=== PATIENT | male | born 1980 | race African-American/Black ===

== ENCOUNTER 2018-06-27 20:41 | Emergency (ER) | payer BC, OTHER ==
[~2018-06-27] VITALS: Ht 170.2 cm; Wt 72.6 kg
--- OUTSIDE RECORDS SUMMARY | 2018-06-27 20:46 | XMS REPORT | CCD ---
Author Author JASMIN GUSTAFSON Unknown Address [address] [facility] [address] [place] [id number] Care Team Providers Care Social Media Executive Name Role Phone RAVENNA ER, MAGDY DO Attphys RAVENNA ER, MAGDY DO Prisurg Vital Signs Unknown. Allergies Allergy Code Allergy Type Reaction Status No Known Drug Allergies 0 No known drug allergies Active Procedures Unknown. History of Immunizations Unknown. Problems Unknown. Results RAPID DRUG SCREEN Test Name Code Test Result Test Units Test Date/ Time Cannabinoids (THC) NEGATIVE N/A 04/12/2013 23:45 Phencyclidine (PCP) NEGATIVE N/A 04/12/2013 23: 45 Cocaine NEGATIVE N/A 04/12/2013 23:45 Methamphetamine NEGATIVE N/A 04/12/2013 23:45 Opiates NEGATIVE N/A 04/12/2013 23:45 Amphetamine NEGATIVE N/A 04/12/2013 23:45 Benzodiazepines NEGATIVE N/A 04/12/2013 23:45 Tricyclic Antidepres NEGATIVE N/A 04/12/2013 23: 45 Methadone NEGATIVE N/A 04/12/2013 23:45 Barbiturates NEGATIVE N/A 04/12/2013 23:45 Oxycodone NEGATIVE N/A 04/12/2013 23:45 Propoxyphene (PPX) NEGATIVE N/A 04/12/2013 23:45 ALCOHOL Test Name Code Test Result Test Units Test Date/ Time ETHANOL 5640-8 60.0000 MG/DL 04/12/2013 23:45 CBC W/ AUTO DIFF (RFLX MAN DIFF IF IND) Test Name Code Test Result Test Units Test Date/ Time WBC 60660-1 14.6000 TH/CMM 04/12/2013 23:45 RBC 789-8 5.4100 ML/CMM 04/12/2013 23:45 HGB 718-7 17.7000 G/DL 04/12/2013 23:45 HCT 4544-3 49.8000 % 04/12/2013 23:45 MCV 92.0000 FL 04/12/2013 23:45 MCH 32.7000 PG 04/12/2013 23:45 MCHC 35.5000 G/DL 04/12/2013 23:45 RDW SD 49.0000 FL 04/12/2013 23:45 MPV 9.4000 FL 04/12/2013 23:45 PLT 777-3 265.0000 TH/CMM 04/12/2013 23:45 %NEUT 76.0000 % 04/12/2013 23:45 %LYMP 14.2000 % 04/12/2013 23:45 %MIXED 9.8000 % 04/12/2013 23:45 #NEUT 11.1000 TH/CMM 04/12/2013 23:45 #LYMP 2.1000 TH/CMM 04/12/2013 23:45 #MIXED 1.4000 TH/CMM 04/12/2013 23:45 SEGS 78.0000 % 04/12/2013 23:45 BANDS 1.0000 % 04/12/2013 23:45 LYMPHS 13.0000 % 04/12/2013 23:45 MONOS 6.0000 % 04/12/2013 23:45 EOS 2.0000 % 04/12/2013 23:45 MANUAL DIFF SEE BELOW N/A 04/12/2013 23:45 TROPONIN-I ADV Test Name Code Test Result Test Units Test Date[place] [address]-2 0.0400 ng/mL 04/12/2013 23: 45 COMPREHENSIVE METABOLIC PANEL Test Name Code Test Result Test Units Test Date/ Time GLUCOSE 2345-7 79.0000 MG/DL 04/12/2013 23:45 SODIUM 2951-2 139.0000 MEQ/L 04/12/2013 23:45 POTASSIUM 2823-3 3.7000 MEQ/L 04/12/2013 23:45 CHLORIDE 2075-0 105.0000 MEQ/L 04/12/2013 23:45 CO2 2028-9 16.0000 MEQ/L 04/12/2013 23:45 BUN 3094-0 16.0000 MG/DL 04/12/2013 23:45 CREATININE 2160-0 1.2000 MG/DL 04/12/2013 23:45 SGOT/AST 1920-8 30.0000 IU/L 04/12/2013 23:45 SGPT/ALT 1742-6 26.0000 IU/L 04/12/2013 23:45 ALK PHOS 6768-6 69.0000 IU/L 04/12/2013 23:45 TOTAL PROTEIN 2885-2 8.9000 G/DL 04/12/2013 23:45 ALBUMIN 1751-7 4.8000 G/DL 04/12/2013 23:45 TOTAL BILI 1975-2 0.3000 MG/DL 04/12/2013 23:45 CALCIUM 54723-8 9.9000 MG/DL 04/12/2013 23:45 AGE 32.0000 yrs 04/12/2013 23:45 GFR NonAA 71.0000 04/12/2013 23:45 GFR AA 86.0000 04/12/2013 23:45 eGFR 60.0000 mL/min/1.7 04/12/2013 23:45 eGFR AA* 60.0000 mL/min/1.7 04/12/2013 23:45 Medications Unknown. Medications Administered Unknown. Encounters Encounter Diagnosis Diagnosis Code Start Date PALPITATIONS 7851 04/12/2013 Social History Smoking Status Code Start Date End Date Current every day smoker [id number] Patient Decision Aids Unknown. Instructions You were admitted to [facility] on 04/12/2013 with a principle diagnosis of PALPITATIONS. You were discharged from [facility] on 04/13/2013. Should you have any questions prior to discharge, please contact a member of your healthcare team. If you have left the hospital and have any questions, please contact your primary care physician. Chief Complaint and Reason For Visit Chief Complaint Date of Onset FAST HEART RATE HEADACHE Function Status Unknown. Referral/Transition of Care Unknown.
--- OUTSIDE RECORDS SUMMARY | 2018-06-27 20:46 | XMS REPORT | Continuity of Care Document ---
Author Organization Unknown Address Unknown Allergies There is no data. Medications There is no data. Problems There is no data. Procedures There is no data. Results There is no data. Encounters ACCT No. Visit Date/Time Discharge Status Pt. Type Provider Facility Loc./Unit Complaint [id number] 07/28/2013 09:41:12 07/28/2013 23:59:59 [facility] Outpatient Jagjit Lopez [id number] 06/30/2013 15:41:01 06/30/2013 23:59:59 [facility] Outpatient Jagjit Lopez [id number] 05/23/2013 09:42:59 05/23/2013 23:59:59 [facility] Outpatient Jagjit Lopez [id number] 05/15/2013 12:01:12 05/15/2013 23:59:59 [facility] Outpatient Kelvin Epperson
--- OUTSIDE RECORDS SUMMARY | 2018-06-27 20:46 | XMS REPORT ---
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 Name Role Phone KEAGAN CARDONA Unavailable PROBLEMS Unknown Problems ALLERGIES No Information ENCOUNTERS Encounter Location Date Diagnosis [facility] [address] [facility] [id number] [place] [phone] May, [facility] [id number] [place] [phone] Dec, Atypical chest pain R07.89 and Dermoid cyst of face D23.30 [facility] [id number] [place] [phone] Nov, Dental examination Z01.20 IMMUNIZATIONS No Known Immunizations SOCIAL HISTORY Never Assessed REASON FOR VISIT Eye Exam PLAN OF CARE VITAL SIGNS MEDICATIONS Unknown Medications RESULTS No Results PROCEDURES No Known procedures INSTRUCTIONS MEDICATIONS ADMINISTERED No Known Medications
--- OUTSIDE RECORDS SUMMARY | 2018-06-27 20:46 | XMS REPORT ---
Author Author KENJI ELLIS Organization [facility] Address [address] [place] [address] Care Team Providers Care Medical Claims Specialist Name Role Phone KENJI ELLIS Unavailable PROBLEMS Unknown Problems ALLERGIES No Known Allergies ENCOUNTERS Encounter Location Date Diagnosis [facility] [address] [place] [phone] May, 2017 [facility] [id number] [place] [phone] Dec, Atypical chest pain R07.89 and Dermoid cyst of face D23.30 [facility] [address] [place] [phone] Nov, Dental examination Z01.20 IMMUNIZATIONS No Known Immunizations SOCIAL HISTORY Never Assessed REASON FOR VISIT bump on arm: left posterior forearm, goes up and down in size, states causes some pain, c/o intermittent chest pain without activity over the past month, denies SOB with incidents idania akhtar PLAN OF CARE Activity Details Follow Up prn Reason: VITAL SIGNS Weight 141.2 lbs 2017-01-11 Temperature 98.6 degrees Fahrenheit 2017-01-11 Heart Rate 72 bpm 2017-01-11 Respiratory Rate 20 2017-01-11 Blood pressure systolic 124 mmHg 2017-01-11 Blood pressure diastolic 72 mmHg 2017-01-11 MEDICATIONS Unknown Medications RESULTS No Results PROCEDURES No Known procedures INSTRUCTIONS MEDICATIONS ADMINISTERED No Known Medications
[2018-06-27] MEDS ORDERED: FAMOTIDINE 20MG/2ML IV (PEPCID) IVP ONE (21:00)
[2018-06-27] MEDS ORDERED: methylPREDNISolone 125 MG (Solu-MEDROL) VIAL IVP ONE (21:00)
[2018-06-27] MEDS ORDERED: diphenhydrAMINE 50 MG/ML INJ (BENADRYL) IVP ONE (21:00)
--- NOTE | 2018-06-27 21:03 | ED EENT ---
History of Present Illness General Chief Complaint: Allergic Reaction Stated Complaint: THROAT PAIN;POSS ALLERGIC REACTION Source: patient Exam Limitations: no limitations History of Present Illness Date Seen by Provider: June 27, 2018 Time Seen by Provider: 20:58 Initial Comments To ER with reports of throat pain and possible allergic reaction. This began about 15 minutes after eating a bowl of microwavable chicken fried rice. This was about 30 minutes ago. 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 Initially he felt as though something was stuck in his throat and tried to clear his throat but was unable to resolve this sensation. He then began drinking a lot of [place] which also failed to resolve this sensation. He now has some difficulty swallowing and speaking due to this sensation in his throat. He states his tongue does not feel any larger than normal, it seems to be lower than that. No history of allergic reactions. His only medication is zigz-bnr-koyqneg Prilosec which he started last week for acid reflux. Timing/Duration: this evening Severity: moderate Location: throat Associated Symptoms: No cough, No facial pain/swelling; sore throat Allergies and Home Medications Allergies Coded Allergies: No Known Drug Allergies (Unverified , 06/27/18) Patient Home Medication List Home Medication List Reviewed: Yes Review of Systems Review of Systems Constitutional: see HPI Eyes: No Symptoms Reported Ears: No Symptoms Reported Nose: no symptoms reported Mouth: no symptoms reported Throat: see HPI, swelling Respiratory: no symptoms reported Cardiovascular: no symptoms reported Musculoskeletal: no symptoms reported Skin: no symptoms reported Past Geyxnun-Gsezbf-Itchdx Hx Patient Social History Recent Foreign Travel: No Contact w/Someone Who Travel: No Physical Exam Vital Signs Vital Signs - First Documented 06/27/18 20:45 Temp 98.0 Pulse 85 Resp 18 B/P (MAP) 165/95 (118) Pulse Ox 99 O2 Delivery Room Air Height, Weight, BMI Height: '" Weight: lbs. oz. kg; BMI Method: General Appearance: WD/WN, no apparent distress Eyes: bilateral eye normal inspection, bilateral eye PERRL, bilateral eye EOMI Ears: bilateral ear auricle normal, bilateral ear canal normal, bilateral ear TM normal Mouth/Throat: normal mouth inspection, pharynx normal, voice changes (he does have a hot potato voice. He is not drooling, swallows his own secretions, no fevers and no pain, just difficulty with swallowing. There is no stridor. There is no oral swelling, the uvula is midline and not swollen, tongue is not swollen.), other Respiratory: no respiratory distress, no accessory muscle use Neurologic/Psychiatric: alert, normal mood/affect, oriented x 3 Skin: normal color, warm/dry Progress/Results/Core Measures Results/Orders My Orders Orders - DAPHNEY LUGO APRN Ed Iv/Invasive Line Start (06/27/18 20:53) Diphenhydramine Injection (Benadryl Inje (06/27/18 21:00) Famotidine Injection (Pepcid Injection) (06/27/18 21:00) Methylprednisolone Sod Succ (Solu-Medrol (06/27/18 21:00) Medications Given in ED Current Medications Medications Dose Ordered Sig/Denys Route Start Time Stop Time Status Last Admin Dose Admin Diphenhydramine HCl 25 mg ONCE ONCE IVP 06/27/18 21:00 06/27/18 21:01 DC 06/27/18 20:58 25 MG Famotidine 20 mg ONCE ONCE IVP 06/27/18 21:00 06/27/18 21:01 DC 06/27/18 20:58 20 MG Methylprednisolone Sodium Succinate 125 mg ONCE ONCE IVP 06/27/18 21:00 06/27/18 21:01 DC 06/27/18 20:58 125 MG Vital Signs/I&O 06/27/18 20:45 Temp 98.0 Pulse 85 Resp 18 B/P (MAP) 165/95 (118) Pulse Ox 99 O2 Delivery Room Air Departure Communication (Admissions) 142-symptoms are improving subjectively, and still unable to visualize anything but he states that it easier to swallow at this point. Could be an allergic angioedema from something that he ate, could be a hereditary angioedema however that is unlikely since he responded to antihistamines Impression Primary Impression: Allergic angioedema Qualified Codes: T78.3XXA - Angioneurotic edema, initial encounter Disposition: HOME, SELF-CARE Condition: Stable Departure-Patient Inst. Decision time for Depature: 21:43 Referrals: NO,LOCAL PHYSICIAN (PCP/Family) Primary Care Physician Patient Instructions: Food Allergy, Angioedema (DC) Add. Discharge Instructions: 1. Take Benadryl every 6 hours or so for the next day. Take steroids as directed return to ER for any worsening or recurrence. All discharge instructions reviewed with patient and/or family. Voiced understanding. Scripts Prednisone (Prednisone) 20 Mg Tab 40 MG PO DAILY, #2 TAB 0 Refills Any tablet strength is fine as long as it totals 40 mg Prov: DAPHNEY LUGO APRN 06/27/18 DAPHNEY LUGO APRN June 27, 2018 21:03
[2018-06-27] MEDS ORDERED: PRD20T PO (21:45)
[2018-06-27 22:00] VITALS: BP 133/94
== END 2018-06-27 22:00 | disposition home or self-care (01) ==
LOC: ER 20:43
DX: T78.3XXA Angioneurotic edema, initial encounter (principal); K21.9 Gastro-esophageal reflux disease without esophagitis

== ENCOUNTER 2019-11-21 17:53 | Emergency (ER) | payer BC ==
[~2019-11-21] VITALS: Ht 170.1 cm; Wt 70.9 kg
[~2019-11-21 17:53] MED LIST: PRD20T PO
[2019-11-21] MEDS ORDERED: hydrALAZINE (APESOLINE) 20 MG/ML VIAL IV ONE (18:15)
--- NOTE | 2019-11-21 18:17 | ED Cardiac General ---
History of Present Illness General Stated Complaint: HIGH BP Source: patient History of Present Illness Date Seen by Provider: Nov 21, 2019 Time Seen by Provider: 17:58 Initial Comments PT ARRIVES VIA POV STATES HE LEFT WORK TO COME HERE--HAS WORKED AT [employer] 3 1/2 YEARS. C/O ELEVATED BLOOD PRESSURE STATES HE RAN OUT OF BLOOD PRESSURE MEDICATION--NO MEDICATION LAST WEDNESDAY, WEDNESDAY OR WEDNESDAY GOT PRESCRIPTION REFILLED ON WEDNESDAY--TOPROL XL 50 MG DAILY--NO RECENT MEDICATION CHANGES. 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 PCP: [facility], MARCO A LAU Allergies and Home Medications Allergies Coded Allergies: No Known Drug Allergies (Unverified , 06/27/18) Home Medications Hydralazine HCl 10 Mg Tablet, 10 MG PO BID Prescribed by: SEBAS NOEL on 11/21/19 185 Prednisone 20 Mg Tab, 40 MG PO DAILY Any tablet strength is fine as long as it totals 40 mg Prescribed by: DAPHNEY LUGO on 06/27/185 Patient Home Medication List Home Medication List Reviewed: Yes Review of Systems Review of Systems Constitutional: No chills, No diaphoresis; dizziness; No fever, No malaise, No weakness EENTM: No Symptoms Reported; No Blurred Vision, No Double Vision Respiratory: No Symptoms Reported; Denies Shortness of Air Cardiovascular: See HPI; Denies Chest Pain, Denies Edema, Denies Irregular Heart Rate; Lightheadedness, Palpitations; Denies Syncope Gastrointestinal: No Symptoms Reported Genitourinary: No Symptoms Reported Musculoskeletal: no symptoms reported Skin: no symptoms reported Psychiatric/Neurological: No Symptoms Reported; Denies Headache, Denies Numbness, Denies Paresthesia, Denies Tingling, Denies Weakness Endocrine: No Symptoms Reported Hematologic/Lymphatic: No Symptoms Reported Past Hdqcgoj-Pmpxai-Tfsack Hx Past Med/Social Hx: Reviewed and Corrections made Patient Social History Alcohol Use: Regular Use (WEEKENDS) Recreational Drug Use: No Smoking Status: Current Everyday Smoker (1/2 PPPD) Type Used: Cigarettes 2nd Hand Smoke Exposure: Yes Recent Foreign Travel: No Contact w/Someone Who Travel: No Recent Hopitalizations: No Immunizations Up To Date Tetanus Booster (TDap): Unknown Seasonal Allergies Seasonal Allergies: No Past Medical History Surgeries: No Respiratory: No Cardiac: Yes Hypertension Neurological: No Genitourinary: No Gastrointestinal: Yes Gastroesophageal Reflux Musculoskeletal: No Endocrine: No HEENT: No Cancer: No Psychosocial: No Integumentary: No Blood Disorders: No Family Medical History SOCIAL HISTORY: -DRINKS ON WEEKENDS -DENIES DRUG USE -SMOKES 1/2 PPD Physical Exam Vital Signs Vital Signs - First Documented 11/21/19 18:00 Temp 37.2 Pulse 86 Resp 18 B/P (MAP) 167/111 (129) Pulse Ox 98 O2 Delivery Room Air Capillary Refill : Height, Weight, BMI Height: 5'7.00" Weight: 160lbs. oz. 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 Norm as Tested; No Abnormal Cerebellar Tests Skin: Normal Color (PT IS BLACK), Warm/Dry Progress/Results/Core Measures Results/Orders Lab Results Laboratory Tests Test 11/21/19 18:08 11/21/19 18:24 Range/Units White Blood Count 12.6 H 4.3-11.0 10^3/uL Red Blood Count 5.05 4.30-5.52 10^6/uL Hemoglobin 16.3 13.3-17.7 g/dL Hematocrit 47 40-54 % Mean Corpuscular Volume 93 80-99 fL Mean Corpuscular Hemoglobin 32 25-34 pg Mean Corpuscular Hemoglobin Concent 35 32-36 g/dL Red Cell Distribution Width 13.6 10.0-14.5 % Platelet Count 315 130-400 10^3/uL Mean Platelet Volume 9.4 9.0-12.2 fL Immature Granulocyte % (Auto) 1 % Neutrophils (%) (Auto) 60 42-75 % Lymphocytes (%) (Auto) 28 12-44 % Monocytes (%) (Auto) 9 0-12 % Eosinophils (%) (Auto) 1 0-10 % Basophils (%) (Auto) 1 0-10 % Neutrophils # (Auto) 7.6 1.8-7.8 10^3/uL Lymphocytes # (Auto) 3.6 1.0-4.0 10^3/uL Monocytes # (Auto) 1.2 H 0.0-1.0 10^3/uL Eosinophils # (Auto) 0.1 0.0-0.3 10^3/uL Basophils # (Auto) 0.1 0.0-0.1 10^3/uL Immature Granulocyte # (Auto) 0.1 0.0-0.1 10^3/uL Prothrombin Time 13.1 12.2-14.7 SEC INR Comment 1.0 0.8-1.4 Activated Partial Thromboplast Time 28 24-35 SEC Sodium Level 136 135-145 MMOL/L Potassium Level 3.9 3.6-5.0 MMOL/L Chloride Level 103 98-107 MMOL/L Carbon Dioxide Level 21 21-32 MMOL/L Anion Gap 12 5-14 MMOL/L Blood Urea Nitrogen 12 7-18 MG/DL Creatinine 1.11 0.60-1.30 MG/DL Estimat Glomerular Filtration Rate > 60 BUN/Creatinine Ratio 11 Glucose Level 94 70-105 MG/DL Calcium Level 9.6 8.5-10.1 MG/DL Corrected Calcium 8.5-10.1 MG/DL Magnesium Level 1.7 1.6-2.4 MG/DL Total Bilirubin 0.5 0.1-1.0 MG/DL Aspartate Amino Transf (AST/SGOT) 18 5-34 U/L Alanine Aminotransferase (ALT/SGPT) 18 0-55 U/L Alkaline Phosphatase 71 40-136 U/L B-Type Natriuretic Peptide < 10.0 <100.0 PG/ML Total Protein 7.8 6.4-8.2 GM/DL Albumin 4.6 H 3.2-4.5 GM/DL Urine Color KRYSTA H Urine Clarity CLEAR Urine pH 5.5 5-9 Urine Specific [place] >=1.030 1.016-1.022 Urine Protein TRACE H NEGATIVE Urine Glucose (UA) NEGATIVE NEGATIVE Urine Ketones 1+ H NEGATIVE Urine Nitrite NEGATIVE NEGATIVE Urine Bilirubin 1+ H NEGATIVE Urine Urobilinogen 1.0 < = 1.0 MG/DL Urine Leukocyte Esterase NEGATIVE NEGATIVE Urine RBC (Auto) NEGATIVE NEGATIVE Urine RBC NONE /HPF Urine WBC NONE /HPF Urine Crystals PRESENT H /LPF Urine Amorphous Sediment FEW [place] URATES H /LPF Urine Bacteria TRACE /HPF Urine Casts NONE /LPF Urine Mucus MODERATE H /LPF Urine Culture Indicated NO Urine Opiates Screen NEGATIVE NEGATIVE Urine Oxycodone Screen NEGATIVE NEGATIVE Urine Methadone Screen NEGATIVE NEGATIVE Urine Propoxyphene Screen NEGATIVE NEGATIVE Urine Barbiturates Screen NEGATIVE NEGATIVE Ur Tricyclic Antidepressants Screen NEGATIVE NEGATIVE Urine Phencyclidine Screen NEGATIVE NEGATIVE Urine Amphetamines Screen NEGATIVE NEGATIVE Urine Methamphetamines Screen NEGATIVE NEGATIVE Urine Benzodiazepines Screen NEGATIVE NEGATIVE Urine Cocaine Screen NEGATIVE NEGATIVE Urine Cannabinoids Screen NEGATIVE NEGATIVE My Orders Orders - SEBAS NOEL DO Ed Iv/Invasive Line Start (11/21/19 18:09) Ekg Tracing (11/21/19 18:09) Monitor-Rhythm Ecg Trace Only (11/21/19 18:09) Chest 1 View, Ap/Pa Only (11/21/19 18:09) BNP (11/21/19 18:09) Cbc With Automated Diff (11/21/19 18:09) Comprehensive Metabolic Panel (11/21/19 18:09) Drug Screen Stat (Urine) (11/21/19 18:09) Magnesium (11/21/19 18:09) Protime With Inr (11/21/19 18:09) Partial Thromboplastin Time (11/21/19 18:09) Ua Culture If Indicated (11/21/19 18:09) Hydralazine Injection (Apresoline Inject (11/21/19 18:15) Medications Given in ED Current Medications Medications Dose Ordered Sig/Denys Route Start Time Stop Time Status Last Admin Dose Admin Hydralazine HCl 10 mg ONCE ONCE IV 11/21/19 18:15 11/21/19 18:16 DC 11/21/19 18:29 10 MG Vital Signs/I&O 11/21/19 11/21/19 11/21/19 18:00 18:49 19:03 Temp 37.2 37.2 Pulse 86 64 64 Resp 18 18 18 B/P (MAP) 167/111 (129) 140/85 (103) 149/88 (103) Pulse Ox 98 100 100 O2 Delivery Room Air Room Air Room Air Progress Progress Note : Progress Note GIVEN HYDRALAZINE FOR BLOOD PRESSURE--DOWN TO 140'S/80'S AT DISMISSAL PT ASYMPTOMATIC DURING ENTIRE ER STAY Initial ECG Impression Date: Nov 21, 2019 Initial ECG Impression Time: 18:12 Initial ECG Rate: 60 Initial ECG Rhythm: Normal Sinus Diagnostic Imaging Comments CXR--PER RADIOLOGIST REPORT AT 1836 The heart size is normal. The pulmonary vascularity is unremarkable. The lungs are clear. No infiltrate, effusion or pneumothorax is detected. IMPRESSION: No acute cardiopulmonary process is detected. Reviewed: Reviewed by Me Departure Impression Primary Impression: HTN (hypertension) Disposition: HOME, SELF-CARE Condition: Improved Departure-Patient Inst. Referrals: [facility] Patient Instructions: DASH Diet, Controlling Your Blood Pressure Through Lifestyle, High Blood Pressure (DC) Add. Discharge Instructions: CONTINUE METOPROLOL PRESCRIBED LOW SODIUM, LOW FAT DIET FOLLOW UP WITH [facility] THIS WEEK FOR FURTHER CARE Scripts Hydralazine HCl (Hydralazine HCl) 10 Mg Tablet 10 MG PO BID, #10 TAB Prov: SEBAS NOEL DO 11/21/19 SEBAS NOEL DO Nov 21, 2019 18:17
[2019-11-21 18:19] LABS: BASOPHILS # (AUTO) 0.1 10^3/uL (0.0-0.1); BASOPHILS % (AUTO) 1 % (0-10); EOSINOPHILS # (AUTO) 0.1 10^3/uL (0.0-0.3); EOSINOPHILS % (AUTO) 1 % (0-10); HEMATOCRIT 47 % (40-54); HEMOGLOBIN 16.3 g/dL (13.3-17.7); LYMPHOCYTES # (AUTO) 3.6 10^3/uL (1.0-4.0); LYMPHOCYTES % (AUTO) 28 % (12-44); MEAN CORPUSCULAR HEMOGLOBIN 32 pg (25-34); MEAN CORPUSCULAR HGB CONC 35 g/dL (32-36); MEAN CORPUSCULAR VOLUME 93 fL (80-99); MEAN PLATELET VOLUME 9.4 fL (9.0-12.2); MONOCYTES # (AUTO) 1.2 10^3/uL (0.0-1.0); MONOCYTES % (AUTO) 9 % (0-12); NEUTROPHILS # (AUTO) 7.6 10^3/uL (1.8-7.8); NEUTROPHILS % (AUTO) 60 % (42-75); PLATELET COUNT 315 10^3/uL (130-400); WHITE BLOOD COUNT 12.6 10^3/uL (4.3-11.0)
[2019-11-21 18:30] LABS: ALBUMIN 4.6 GM/DL (3.2-4.5)
[2019-11-21 18:31] LABS: CHLORIDE 103 MMOL/L (98-107); POTASSIUM 3.9 MMOL/L (3.6-5.0); PROTHROMBIN TIME PATIENT 13.1 SEC (12.2-14.7); SODIUM 136 MMOL/L (135-145)
[2019-11-21 18:32] LABS: CALCIUM 9.6 MG/DL (8.5-10.1)
--- NOTE | 2019-11-21 18:32 | Diagnostic Imaging Report ---
INDICATION: Hypertension. TIME OF EXAM: 6:19 PM COMPARISON: No prior studies are available for comparison. The heart size is normal. The pulmonary vascularity is unremarkable. The lungs are clear. No infiltrate, effusion or pneumothorax is detected. IMPRESSION: No acute cardiopulmonary process is detected. Dictated by: Dictated on workstation # [id number]
[2019-11-21 18:33] LABS: GLUCOSE 94 MG/DL (70-105); TOTAL PROTEIN 7.8 GM/DL (6.4-8.2)
[2019-11-21 18:34] LABS: CARBON DIOXIDE 21 MMOL/L (21-32)
[2019-11-21 18:35] LABS: BILIRUBIN,TOTAL 0.5 MG/DL (0.1-1.0)
[2019-11-21 18:36] LABS: ALKALINE PHOSPHATASE 71 U/L (40-136)
[2019-11-21 18:37] LABS: CREATININE SERUM 1.11 MG/DL (0.60-1.30); GFR ESTIMATED > 60
[2019-11-21 18:38] LABS: BUN/CREATININE RATIO 11
[2019-11-21 18:39] LABS: ALANINE AMINOTRANSFERASE 18 U/L (0-55)
[2019-11-21 18:40] LABS: CLARITY,URINE CLEAR; COLOR,URINE AMBER; GLUCOSE, URINE (UA) NEGATIVE (NEGATIVE); KETONES,URINE 1+ (NEGATIVE); LEUKOCYTE ESTERASE ,URINE NEGATIVE (NEGATIVE); NITRITE,URINE NEGATIVE (NEGATIVE); PH,URINE 5.5 (5-9); PROTEIN,URINE TRACE (NEGATIVE)
[2019-11-21 18:40] LABS: MAGNESIUM 1.7 MG/DL (1.6-2.4)
[2019-11-21 18:49] VITALS: BP 140/85
[2019-11-21 18:51] LABS: AMORPHOUS SEDIMENT,UR FEW AMOR URATES /LPF; BACTERIA,URINE TRACE /HPF
[2019-11-21 18:52] LABS: BILIRUBIN,URINE 1+ (NEGATIVE)
[2019-11-21] MEDS ORDERED: HYDR-3922 PO (18:53)
[2019-11-21 19:03] VITALS: BP 149/88
[2019-11-21 19:16] LABS: AMPHETAMINE SCREEN, URINE NEGATIVE (NEGATIVE); BARBITURATE SCREEN URINE NEGATIVE (NEGATIVE); BENZODIAZEPINES SCREEN URINE NEGATIVE (NEGATIVE); CANNABINOID SCREEN, URINE NEGATIVE (NEGATIVE); COCAINE SCREEN URINE NEGATIVE (NEGATIVE); METHADONE STAT NEGATIVE (NEGATIVE); METHAMPHETAMINE SCREEN URINE S NEGATIVE (NEGATIVE); OPIATE SCREEN URINE NEGATIVE (NEGATIVE); OXYCODONE STAT NEGATIVE (NEGATIVE); PROPOXYPHENE STAT NEGATIVE (NEGATIVE); TRICYCLIC ANTIDEPRESSANTS SCRE NEGATIVE (NEGATIVE)
== END 2019-11-21 19:03 | disposition home or self-care (01) ==
LOC: EDUNIT# 17:53 → ER 17:55
DX: I10 Essential (primary) hypertension (principal); F17.210 Nicotine dependence, cigarettes, uncomplicated; Z79.52 Long term (current) use of systemic steroids
CPT/HCPCS: 36415; 71045; 80053; 80306; 81000; 83735; 83880; 85025; 85610; 85730; 93005; 93041